=== PATIENT | male | born 1995 | race Two or more races ===

== ENCOUNTER 2023-05-03 12:37 | Emergency (ER) | payer OTHER ==
[~2023-05-03] VITALS: Ht 185.4 cm; Wt 93.4 kg
[2023-05-03 12:45] VITALS: BP 134/57; PULSE 61; RESP 20; TEMP 97.2; O2SAT 100
[2023-05-03] MEDS ORDERED: KETOROLAC 30 MG/ML VIAL IM SCH (13:50)
[2023-05-03] MEDS ORDERED: IBUP-2213 PO (14:16)
[2023-05-03 15:26] VITALS: BP 130/60; PULSE 66; RESP 20; TEMP 98.3; O2SAT 100
--- NOTE | 2023-05-03 15:26 | NUR ---
Patient discharged with v/s stable. Written and verbal after care instructions FOR [employer] given and explained. Patient alert, oriented and verbalized understanding of instructions. Ambulatory with steady gait. All questions addressed prior to discharge. ID band removed. Patient advised to follow up with PMD. Rx of IBUPROFEN given. Opportunity to ask questions provided and answered.
--- NOTE | 2023-05-03 16:26 | NUR ---
The patient's care was reviewed and supervised by CEASAR BAILEY RN.
== END 2023-05-03 15:26 | disposition home or self-care (01) ==
LOC: MED 12:37
DX: S62.524A Nondisplaced fracture of distal phalanx of right thumb, initial encounter for closed fracture (principal); S60.111A Contusion of right thumb with damage to nail, initial encounter; Z79.1 Long term (current) use of non-steroidal anti-inflammatories (NSAID); X58.XXXA Exposure to other specified factors, initial encounter; Y92.89 Other specified places as the place of occurrence of the external cause; Y93.89 Activity, other specified; Y99.8 Other external cause status
CPT/HCPCS: 29130; 73130; 96372; 99283; J1885